=== PATIENT | male | born 1990 | race American Indian/Alaskan Native ===

== ENCOUNTER 2019-10-23 21:32 | Emergency (ER) | payer SELFPAY ==
[2019-10-23 22:22] VITALS: BP 137/82
[2019-10-23] MEDS ORDERED: IPRATROPIUM/ALBUTEROL SULFATE 3 ML AMPUL.NEB IH ONE (23:11)
--- NOTE | 2019-10-23 23:48 | XRay Report ---
CHEST 2 VIEWS INDICATION / CLINICAL INFORMATION: MAIN: SOB; pt states he has had drank energy drinks all day and smoked a cigarette then followed ches t pain on left side. COMPARISON: None available. FINDINGS: SUPPORT DEVICES: None. HEART / MEDIASTINUM: No significant abnormality. LUNGS / PLEURA: No significant pulmonary or pleural abnormality. No pneumothorax. ADDITIONAL FINDINGS: No significant additional findings. IMPRESSION: 1. No significant abnormality. Signer Name: Maria Eugenia Cao MD Signed: 10/23/2019 11:43 PM Workstation Name: [id number]
--- NOTE | 2019-10-24 00:07 | Emergency Department Report ---
HPI - General Chief Complaint: Chest Pain Time Seen by Provider: 10/23/19 23:03 - HPI HPI: 29-year-old -[place] male presents to the emergency department with complaint of some left-sided intermittent sharp chest tightness that started tonight after smoking marijuana. The patient says that he worked all day, drank 2 monster energy drinks, and did not eat much food. After smoking the marijuana the symptoms began but they seem to have resolved upon presentation here. He denies any tobacco use. He has a past medical history of asthma. He has not taken anything for symptoms prior to presentation. No recent travel or sick contacts at home. He denies any fever, shortness of breath, palpitations, nausea, vomiting or diaphoresis. ED Past Medical Hx - Past Medical History Hx Asthma: Yes - Surgical History Past Surgical History?: No - Social History Smoking Status: Never Smoker Substance Use Type: Marijuana ED Review of Systems ROS: Stated complaint: CHEST PAIN Other details as noted in HPI Comment: All other systems reviewed and negative Constitutional: denies: chills, fever Eyes: denies: eye pain ENT: denies: ear pain, throat pain Respiratory: denies: cough, shortness of breath Cardiovascular: chest pain. denies: palpitations Gastrointestinal: denies: abdominal pain, vomiting Genitourinary: denies: dysuria, discharge Musculoskeletal: denies: back pain, arthralgia Skin: denies: rash, lesions Neurological: denies: headache, weakness Physical Exam - Physical Exam Vital Signs: Vital Signs 10/23/19 21:37 Temperature 98.5 F Pulse Rate 76 Respiratory 20 Rate Blood Pressure 137/82 O2 Sat by Pulse 100 Oximetry Physical Exam: GENERAL: The patient is well-developed well-nourished. HENT: Normocephalic. Atraumatic. Patient has moist mucous membranes. EYES: Extraocular motions are intact. NECK: Supple. Trachea is midline. CHEST/LUNGS: Clear to auscultation. There is no respiratory distress noted. HEART/CARDIOVASCULAR: Regular. There is no tachycardia. There is no murmur. ABDOMEN: There is no abdominal distention. SKIN: Skin is warm and dry. NEURO: The patient is awake, alert, and oriented. The patient is cooperative. Normal speech. MUSCULOSKELETAL: There is no tenderness or deformity. There is no evidence of acute injury. ED Course Vital Signs 10/23/19 21:37 Temperature 98.5 F Pulse Rate 76 Respiratory 20 Rate Blood Pressure 137/82 O2 Sat by Pulse 100 Oximetry ED Medical Decision Making - EKG Data -: EKG Interpreted by Me EKG shows normal: sinus rhythm, axis, intervals, QRS complexes, ST-T waves Rate: normal - EKG Data When compared to previous EKG there are: previous EKG unavailable Interpretation: normal EKG - Radiology Data Radiology results: image reviewed interpreted by me: Chest x-ray does not show any acute process. There are no pleural effusions, obvious pneumonia and there is no pneumothorax. - Medical Decision Making This patient presents to the emergency department with complaint of some intermittent left-sided sharp chest pains that started after smoking marijuana this evening. EKG is normal without ST elevation NH, ischemia or dysrhythmia. Chest x-ray does not show any pneumonia, pleural effusions, pneumothorax, focal consolidation, or any other acute process. Patient was given a breathing treatment and upon reevaluation says she is feeling improved. The intermittent pains appear to have resolved upon presentation to the emergency department. Patient is very low suspicion for coronary artery disease. Vital signs stable throughout his ED course. The patient will be discharged home to follow-up with primary care. We discussed avoiding any further marijuana or illicit drug use. He will return to the emergency department with any worsening of his symptoms or any acute distress. Critical Care Time: No Critical care attestation.: If time is entered above; I have spent that time in minutes in the direct care of this critically ill patient, excluding procedure time. ED Disposition Clinical Impression: Atypical chest pain Disposition: DC- TO HOME OR SELFCARE Is pt being admited?: No Condition: Stable Instructions: Chest Pain (ED) Additional Instructions: Please avoid any further marijuana or illicit drug use. Follow-up with a primary care physician in the next few days. Return to the emergency department with any worsening of your symptoms or any acute distress. Referrals: MIRANDA MADISON MD [Primary Care Provider] - 3-5 Days GÉNESIS MACIEL MD [Staff Physician] - 3-5 Days [facility] [Provider Group] - 3-5 Days Time of Disposition: 00:04 Heart Score - HEART Score History: Slightly suspicious EKG: Normal Age: < 45 Risk factors: No known risk factors Troponin: < normal limit HEART Score: 0 - Critical Actions Critical Actions: 0-3 pts:0.9-1.7%risk of adverse cardiac event.Candidate for discharge
== END 2019-10-24 00:15 | disposition home or self-care (01) ==
LOC: ED 21:32
DX: R07.89 Other chest pain (principal); J45.909 Unspecified asthma, uncomplicated; F12.10 Cannabis abuse, uncomplicated
CPT/HCPCS: 71046; 93005